=== PATIENT | female | born 1980 | race Caucasian/White ===

== ENCOUNTER 2017-04-06 11:41 | Emergency (ER) | payer BC ==
[2017-04-06] MEDS ORDERED: Bacitracin Zinc 1 Packet ONE (12:11)
== END 2017-04-06 12:38 | disposition home or self-care (01) ==
LOC: ERS 11:41
DX: S61.253A Open bite of left middle finger without damage to nail, initial encounter (principal); F17.290 Nicotine dependence, other tobacco product, uncomplicated; Z79.899 Other long term (current) drug therapy; W54.0XXA Bitten by dog, initial encounter
CPT/HCPCS: 99282